=== PATIENT | female | born 1985 | race African-American/Black ===

== ENCOUNTER 2017-09-01 17:32 | Emergency (ER) | payer OTHER ==
[2017-09-01] MEDS ORDERED: ACETAMINOPHEN 325 MG TABLET (FP) PO ONE (17:42)
[2017-09-01 17:44] VITALS: BMI 29.6
--- NOTE | 2017-09-01 17:47 | PDOC ---
Rapid Medical Evaluation Time Seen by Provider: 09/01/17 17:38 Medical Evaluation: 09/01/17 17:38 The patient presents with a chief complaint of: 7 weeks , headache, abd/ back pain I have performed a brief in-person evaluation of this patient. Pertinent physical exam findings: vss I have ordered the following: labs, tylenol The patient will proceed to the ED for further evaluation. 09/01/17 17:47
[2017-09-01] MEDS ORDERED: ACETAMINOPHEN 325 MG TABLET (FP) ONE (18:10)
[2017-09-01 18:29] LABS: BASO % 0.6 % (0-2.0); EOS % 0.4 % (0-4.5); HEMOGLOBIN 11.4 GM/dL (10.7-15.3); LYMPH % 32.4 % (8-40); MCH 28.6 pg (25.7-33.7); MCHC 33.6 g/dl (32.0-36.0); MEAN CELL VOLUME 85.1 fl (80-96); MONO % 6.8 % (3.8-10.2); NEUT % 59.8 % (42.8-82.8); PLATELET COUNT 265 K/MM3 (134-434); RBC 3.99 M/mm3 (3.60-5.2); RDW 15.6 % (11.6-15.6); WHITE BLOOD COUNT 5.2 K/mm3 (4.0-10.0)
[2017-09-01 18:49] LABS: ALBUMIN 3.4 g/dl (3.4-5.0); ALK PHOS 48 U/L (45-117); ANION GAP 10 (8-16); BILIRUBIN,TOTAL 0.2 mg/dL (0.2-1.0); BLOOD UREA NITROGEN 7 mg/dL (7-18); CALCIUM 8.7 mg/dL (8.5-10.1); CHLORIDE 103 mmol/L (98-107); CO2 23 mmol/L (21-32); CREATININE 0.5 mg/dL (0.55-1.02); GLUCOSE,RANDOM 80 mg/dL (74-106); SGOT/AST 13 U/L (15-37); SGPT/ALT 20 U/L (12-78); SODIUM 136 mmol/L (136-145); TOT PROT 7.3 g/dl (6.4-8.2)
[2017-09-01 18:59] LABS: URINE APPEARANCE CLEAR; URINE BILIRUBIN NEGATIVE (NEGATIVE); URINE BLOOD NEGATIVE (NEGATIVE); URINE COLOR STRAW; URINE GLUCOSE (UA) NEGATIVE (NEGATIVE); URINE KETONE NEGATIVE (NEGATIVE); URINE LEUK ESTERASE NEGATIVE (NEGATIVE); URINE NITRITE NEGATIVE (NEGATIVE); URINE PROTEIN NEGATIVE (NEGATIVE); URINE UROBILINOGEN NEGATIVE mg/dL (0.2-1.0)
--- NOTE | 2017-09-01 19:10 | PDOC ---
History of Present Illness - General Chief Complaint: Lightheaded Stated Complaint: FATIGUE Time Seen by Provider: 09/01/17 17:38 - History of Present Illness Initial Comments: 09/01/17 19:21 32 yo at 7 wga who p/w with presyncope. Pt. 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 Event lasted minutes and resolved after sitting down. Denies LOC, or vertiginous sx. Also endorses sharp, unremitting, frontal NORRIS, and sharp low back pain of 90 minutes. No vision change, urinary retention, perianal numbness/tinlging, weakness. PO Tylenol use with improvement of NORRIS. No identifiable triggers or alleviators. Reports brownish vaginal discharge yesterday evening and spasmodic, crampy, diffuse R>L, lower abdominal pain occurring randomly, with no identifiable triggers or alleviators. Denies BRB per vagina. Denies N/V, F/C, CP, cough, SOB, diarrhea, constipation, BRBPR, urinary complaints, weakness, sensory changes.Reports ED visit at [facility] for similar complaint of syncope later reported to be 2/2 dehydration. Patient reports adequate PO fluid intake. Pt. states that she follows with Dr. DIETRICH and has apt. next week for U/S. Past History - Past Medical History Allergies/Adverse Reactions: Allergies Allergy/AdvReac Type Severity Reaction Status Date / Time No Known Allergies Allergy Verified 09/01/17 17:39 Home Medications: Ambulatory Orders NK [No Known Home Medication] 09/01/17 COPD: No Other medical history: DENIES. - Reproductive History Is Patient Now?: Yes (#): 2 Para: 1 Cervical CA: No Dysfunctional Uterine Bleeding: No Ectopic : No Endometrial CA: No Polycystic Ovaries: No Therapeutic (s) & number: No Tubal Ligation: No Spontaneous : 0 - Suicide/Smoking/Psychosocial Hx Smoking History: Never smoked Information on smoking cessation initiated: No Review of Systems - Review of Systems Comments:: 09/01/17 19:09 GENERAL/CONSTITUTIONAL: No fever or chills. No weakness. HEAD, EYES, EARS, NOSE AND THROAT: No change in vision. No ear pain or discharge. No sore throat. CARDIOVASCULAR: No chest pain or shortness of breath RESPIRATORY: No cough, wheezing, or hemoptysis. GASTROINTESTINAL: No nausea, vomiting, diarrhea or constipation. GENITOURINARY: No dysuria, frequency, or change in urination. MUSCULOSKELETAL:+ Lower back pain. No joint or muscle swelling or pain. No neck pain. SKIN: No rash NEUROLOGIC: + headache. No vertigo, loss of consciousness, or change in strength /sensation. ENDOCRINE: No increased thirst. No abnormal weight change HEMATOLOGIC/LYMPHATIC: No anemia, easy bleeding, or history of blood clots. ALLERGIC/IMMUNOLOGIC: No hives or skin allergy. *Physical Exam - Vital Signs Last Vital Signs Temp Pulse Resp BP Pulse Ox 98.8 F 82 19 120/74 100 09/01/17 17:39 09/01/17 17:39 09/01/17 17:39 09/01/17 17:39 09/01/17 17:39 - Physical Exam Comments: 09/01/17 19:09 GENERAL: Awake, alert, and fully oriented, in no acute distress HEAD: No signs of trauma, normocephalic, atraumatic EYES: PERRLA, EOMI, sclera anicteric, conjunctiva clear ENT: Hearing grossly normal, nares patent, oropharynx clear without exudates. Moist mucosa NECK: Normal ROM, supple, no lymphadenopathy, JVD, or masses LUNGS: No distress, speaks full sentences, clear to auscultation bilaterally HEART: Regular rate and rhythm, normal S1 and S2, no murmurs, rubs or gallops, peripheral pulses normal and equal bilaterally. ABDOMEN: Soft, LLQ>RLQ ttp. normoactive bowel sounds. No guarding, no rebound. No masses. Neg CVA or suprapubic ttp. : Normal appearing external genitalia. Absent blood in vaginal vault. Scant white discharge.Cervical os closed and non erythematous. Absent CMT on BM. EXTREMITIES : Normal inspection, Normal range of motion, no edema. No clubbing or cyanosis. NEUROLOGICAL: Cranial nerves II through XII grossly intact. Normal speech, normal gait, no focal sensorimotor deficits. Normal ALY. Absent dysmetria on FTN. SKIN: Warm, Dry, normal turgor, no rashes or lesions noted ED Treatment Course - LABORATORY CBC & Chemistry Diagram: 09/01/17 18:20 09/01/17 18:20 - ADDITIONAL ORDERS Additional order review: Laboratory Results 09/01/17 09/01/17 09/01/17 Unknown 19:45 18:20 Sodium 136 Potassium 4.0 Chloride 103 Carbon Dioxide 23 Anion Gap 10 BUN 7 Creatinine 0.5 L Creat Clearance w eGFR > 60 Random Glucose 80 Calcium 8.7 Total Bilirubin 0.2 D AST 13 L ALT 20 Alkaline Phosphatase 48 Creatine Kinase Creatine Kinase Index CK-MB (CK-2) Troponin I Total Protein 7.3 Albumin 3.4 Beta HCG, Quant 503166.6 Urine Color Straw Urine Appearance Clear Urine pH 7.0 D Ur Specific [place] 1.008 Urine Protein Negative Urine Glucose (UA) Negative Urine Ketones Negative Urine Blood Negative Urine Nitrite Negative Urine Bilirubin Negative Urine Urobilinogen Negative Ur Leukocyte Esterase Negative Blood Type O POSITIVE Antibody Screen Negative 09/01/17 18:10 Sodium Potassium Chloride Carbon Dioxide Anion Gap BUN Creatinine Creat Clearance w eGFR Random Glucose Calcium Total Bilirubin AST ALT Alkaline Phosphatase Creatine Kinase 245 H Creatine Kinase Index 0.8 CK-MB (CK-2) 2.202 Troponin I < 0.02 Total Protein Albumin Beta HCG, Quant Cancelled Urine Color Urine Appearance Urine pH Ur Specific [place] Urine Protein Urine Glucose (UA) Urine Ketones Urine Blood Urine Nitrite Urine Bilirubin Urine Urobilinogen Ur Leukocyte Esterase Blood Type Antibody Screen 09/01/17 18:20 RBC 3.99 MCV 85.1 MCHC 33.6 RDW 15.6 MPV 7.0 L Neutrophils % 59.8 Lymphocytes % 32.4 Monocytes % 6.8 Eosinophils % 0.4 Basophils % 0.6 - RADIOLOGY Radiology Studies Ordered: Category Date Time Status OB LIMITED US [US] Stat Ultrasound 09/01/17 20:42 Completed - Medications Given in the ED: ED Medications Discontinued Medications Generic Name Dose Route Start Last Admin Trade Name Freq PRN Reason Stop Dose Admin Acetaminophen 650 mg 09/01/17 17:42 09/01/17 18:25 Tylenol - PO 09/01/17 17:43 650 mg ONCE ONE Administration Sodium Chloride 1,000 mls @ 1,000 mls/hr 09/01/17 19:40 09/01/17 19:52 Normal Saline - IV 09/01/17 20:39 1,000 mls/hr ASDIR STA Administration Medical Decision Making - Medical Decision Making 09/01/17 19:33 32 yo at 7 wga who p/w with transient presyncopal event at 1700 this evening following episode of prolonged standing at work. Resolved after sitting down. Denies LOC, or vertiginous sx. Eendorses sharp, unremitting, frontal NORRIS, and sharp low back pain of 90 minutes. No vision change, urinary retention, perianal numbness/tinlging, weakness. No identifiable triggers or alleviators. Reports brownish vaginal discharge yesterday evening and spasmodic, crampy, diffuse R>L, lower abdominal pain occurring randomly, with no identifiable triggers or alleviators. Denies N/V, F/C, CP, cough, SOB, diarrhea, constipation , BRBPR, Denies BRB per vagina, urinary complaints, weakness, sensory changes. Physical exam with L>R lower quadrant ttp. Benign pelvic exam. HDS. Wll assess for cardiogenic ( dysarrythmia, cardiac dz.) , vs hypovolemic cause of syncope. Low suspicion of neurogenic cause of syncope. Denies prodromal vasovagal sx. onset and with absent neuro deficits. D/t complaint of abdominal pain and dark vaginal discharge will assess for threatened , ectopic , and viable IUP. Pt. with NORRIS, but normal BP and absent physical exam findings. Low suspicion of pseudotumor cerebri, or preeclampsia. ED Course: 09/01/17 19:40 CBC, CMP, Cardiac Pr, T&S, BHCG Tylenol , NS Transvaginal U/S 09/01/17 19:45 09/01/17 19:45 CBC, CMP BHCG~[id number] 09/01/17 19:46 UA: Neg 09/01/17 20:44 09/01/17 21:23 EKG: NSR with LAD. Absent AMBER, STD, or TWI. 09/01/17 22:22 Transvaginal U/S: Single live IUP 8 wga. Patient stable for d/c with return precautions. Advised to f/u with [facility]. *DC/Admit/Observation/Transfer Diagnosis at time of Disposition: Pre-syncope, Abdominal pain during in first trimester - Discharge Dispostion Disposition: HOME Condition at time of disposition: Stable Admit: No - Referrals - Patient Instructions Printed Discharge Instructions: DI for Syncope in Adults (Fainting) Additional Instructions: Please return to the emergency department with any new or worsening symptoms or concerns. Please follow up with your primary care physician within 72 hours. 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 - Post Discharge Activity - Attestations Physician Attestion: 09/01/17 19:10 I attest to the information provided in this note.
--- NOTE | 2017-09-01 19:31 | PDOC ---
Attending Attestation - HPI HPI: 09/01/17 20:04 The patient is a 7 weeks 32 year old female , with no significant past medical history, who presents to the emergency department with, a presyncopal episode approx 2 hours ago. 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 The patient states she sat down and her lightheadedness resolved. The patient denies any recent loss of consciousness. However, the patient states she had a similar episode of lightheadedness in May where she syncopized. The patient states she was evaluated at [facility] s/p syncopal episode which stated she was dehydrated and all her results were normal. The patient also reports a second complaint of brownish vaginal discharge and intermittent diffuse crampy lower abdominal pain beginning yesterday evening. The patient states she has an OB who she follows with regularly with her next appointment next week. She denies recent fevers, chills. She denies recent nausea, vomit, diarrhea or constipation. She denies recent dysuria, frequency, urgency or hematuria. She denies recent chest pain or shortness of breath. Allergies: NKA Documentation prepared by Jules Robbins, acting as medical field representative for Tyrone Anthony DO. <Jules Robbins - Last Filed: 09/01/17 20:04> - Resident Resident Name: Keagan Evans - ED Attending Attestation I have performed the following: I have examined & evaluated the patient, The case was reviewed & discussed with the resident, I agree w/resident's findings & plan, Exceptions are as noted - Physicial Exam PE: 09/02/17 19:24 *Physical Exam General Appearance: Yes: Appropriately Dressed. No: Apparent Distress, Intoxicated HEENT: positive: EOMI, LEONID, Normal ENT Inspection, Normal Voice, TMs Normal, Pharynx Normal. negative: Pale Conjunctivae, Photophobia, Scleral Icterus (R), Scleral Icterus (L) Neck: positive: Trachea midline, Normal Thyroid, Supple. negative: Tender, Rigid, Carotid bruit, Stridor, Lymphadenopathy (R), Lymphadenopathy (L), Thyromegaly Respiratory/Chest: positive: Lungs Clear, Normal Breath Sounds. negative: Chest Tender, Respiratory Distress, Accessory Muscle Use, Labored Respiration, RES, Crackles, Rales, Rhonchi, Stridor, Wheezing, Dullness Cardiovascular: positive: Regular Rhythm, Regular Rate, S1, S2. negative: Edema , JVD, Murmur, Bradycardia, Tachycardia Vascular Pulses: Dorsalis-Pedis (R): 2+, Doralis-Pedis (L): 2+ Gastrointestinal/Abdominal: positive: Normal Bowel Sounds, Flat, Soft. negative : Tender, Organomegaly, Pulsatile Mass, Increased Bowel Sounds, Decreased BS, Distended, Guarding, Rebound, Hernia, Hepatomegaly, Spleenomegaly Lymphatic: negative: Adenopathy, Tenderness Musculoskeletal: positive: Normal Inspection. negative: CVA Tenderness, Decreased Range of Motion Extremity: positive: Normal Capillary Refill, Normal Inspection, Normal Range of Motion, Pelvis Stable. negative: Tender, Pedal Edema, Swelling, Erythema Integumentary: positive: Normal Color, Dry, Warm. 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 negative: EOM Palsy, Facial Droop, Sensory Deficit - Medical Decision Making 09/02/17 19:24 Pt treated and released <Tyrone Anthony - Last Filed: 09/02/17 19:25>
[2017-09-01] MEDS ORDERED: SODIUM CHLORIDE 1,000 ML IV STA (19:40)
[2017-09-01 22:50] VITALS: BP 122/70; PULSE 80; TEMP 98.1
--- NOTE | 2017-09-02 08:24 | EKG ---
Test Reason : Blood Pressure : / mmHG Vent. Rate : 079 BPM Atrial Rate : 079 BPM P-R Int : 194 ms QRS Dur : 078 ms QT Int : 368 ms P-R-T Axes : 077 -31 025 degrees QTc Int : 421 ms POOR DATA QUALITY, INTERPRETATION MAY BE ADVERSELY AFFECTED NORMAL SINUS RHYTHM LEFT AXIS DEVIATION ABNORMAL ECG NO PREVIOUS ECGS AVAILABLE Confirmed by JOSESITO LOUIE, DARLING ([id number]) on 09/02/2017 8:23:51 AM Referred By: Confirmed By:DARLING BELLAMY MD
== END 2017-09-01 22:50 | disposition home or self-care (01) ==
LOC: JER 17:32
PROC: 3E0337Z Introduction of Electrolytic and Water Balance Substance into Peripheral Vein, Percutaneous Approach (ICD-10-PCS; principal; 2017-09-01)
DX: O26.891 Other specified pregnancy related conditions, first trimester (principal); Z3A.01 Less than 8 weeks gestation of pregnancy; R10.9 Unspecified abdominal pain; R55 Syncope and collapse
CPT/HCPCS: 36415; 76815; 80053; 81003; 82550; 82553; 84484; 84702; 85025; 86850; 86900; 86901; 93005; 93010; 99285-25; J7030